=== PATIENT | male | born 1945 | race Two or more races ===

== ENCOUNTER 2019-10-25 13:03 | Emergency (ER) | payer MEDICAID, MEDICARE, OTHER ==
[~2019-10-25] VITALS: Ht 162.6 cm; Wt 63.5 kg
[2019-10-25 13:34] VITALS: BP 202/95
--- NOTE | 2019-10-25 13:35 | NUR ---
PT PRESENTS TO ED WITH C/O FEVER, MILD SOB, AND SORE THROAT ONSET LAST NIGHT. PT DENIES SICK CONTACTS, IS RETIRED. PT IS HYPERTENSIVE, EDPA LARY AT BEDSIDE AND AWARE. PT DENIES CHEST PAIN, DENIES VISUAL CHANGES, STATES HE HAS HAD AN INTERMITTENT HEADACHE FOR SEVERAL MONTHS. PT PLACED ON ALL MONITORS, EDPA ASSESSMENT IN PROGRESS. EKG TAKEN IN TRIAGE. AWAITING FURTHER ORDERS AT THIS TIME.
--- NOTE | 2019-10-25 13:48 | NUR ---
REPORT RECEIVED FROM VISHAL MOHR.
--- NOTE | 2019-10-25 13:49 | NUR ---
REPORT GIVEN TO FANI LITTLE. PT A&O, RESPS EVEN AND UNLABORED. AWAITING CXR AND LABS AT THIS TIME.
--- NOTE | 2019-10-25 13:56 | NUR ---
RAD IN ROOM.
--- NOTE | 2019-10-25 14:02 | NUR ---
LAB IN ROOM.
[2019-10-25 14:23] LABS: BASOPHILS # (AUTO) 0.04 x10^3/uL (0-0.1); BASOPHILS % (AUTO) 1 % (0-1); EOSINOPHILS # (AUTO) 0.17 x10^3/uL (0-0.4); EOSINOPHILS % (AUTO) 2 % (1-7); LYMPHOCYTES # (AUTO) 1.48 x10^3/uL (1-3.4); LYMPHOCYTES % (AUTO) 19 % (22-44); MD NO; MEAN CORPUSCULAR HEMOGLOBIN 30.9 pg (27.5-34.5); MEAN CORPUSCULAR HGB CONC 33.6 g/dL (33.2-36.2); MEAN CORPUSCULAR VOLUME 92.1 fL (81-97); MEAN PLATELET VOLUME 9.6 fL (7.4-10.4); MONOCYTES # (AUTO) 0.52 x10^3/uL (0.2-0.8); MONOCYTES % (AUTO) 7 % (2-9); NEUTROPHILS # (AUTO) 5.56 x10^3/uL (1.8-6.8); NEUTROPHILS % (AUTO) 72 % (42-75); PLATELET COUNT 293 x10^3/uL (130-400); RED BLOOD COUNT 4.81 x10^6/uL (4.38-5.82); RED CELL DISTRIBUTION WIDTH 13.8 % (9.4-14.8)
[2019-10-25 14:25] LABS: ALANINE AMINOTRANSFERASE 39 U/L (12-78); ALBUMIN 3.9 g/dL (3.4-5.0); ANION GAP 8 mmol/L (5-15); CALCIUM 9.3 mg/dL (8.5-10.1); CHLORIDE 103 mmol/L (98-107); CREATININE 1.42 mg/dL (0.7-1.3)
[2019-10-25 14:26] LABS: RAPID INFLUENZA A Negative (Negative); RAPID INFLUENZA B Negative (Negative)
--- NOTE | 2019-10-25 14:28 | NUR ---
[facility] [employer] [employer], WATCHING TV. AWAITING RESULTS.
[2019-10-25 14:29] LABS: ALKALINE PHOSPHATASE 78 U/L (45-117); BILIRUBIN,TOTAL 0.4 mg/dL (0.2-1.0); TOTAL PROTEIN 7.8 g/dL (6.4-8.2); TROPONIN I < 0.015 ng/mL (0.000-0.045)
--- NOTE | 2019-10-25 14:45 | NUR ---
PT AMBULATED TO THE BR W/ A STEADY GAIT.
== END 2019-10-25 16:37 | disposition home or self-care (01) ==
LOC: ED 13:59
DX: R50.9 Fever, unspecified (principal); R06.00 Dyspnea, unspecified; R05 Cough; I10 Essential (primary) hypertension; E11.9 Type 2 diabetes mellitus without complications; K21.9 Gastro-esophageal reflux disease without esophagitis
CPT/HCPCS: 36415; 71045; 80053; 83880; 84484; 85025; 87081; 87400; 87880; 93005; 99285